=== PATIENT | female | born 1940 | race Caucasian/White ===

== ENCOUNTER → 2019-11-25 | Outpatient (CLI) | payer MEDICARE, OTHER ==
--- NOTE | 2019-11-25 19:36 | RADIOLOGY REPORT (SQ) ---
EXAM DESCRIPTION: MRI LT UPPER JOINT WITHOUT COMPLETED DATE/TIME: 11/25/2019 6:53 pm REASON FOR STUDY: M25.512 PAIN IN LEFT SHOULDER M25.512 PAIN IN LEFT SHOULDER COMPARISON: None. TECHNIQUE: Left shoulder images acquired and stored on PACS. Multiplanar imaging to include fat sens itive sequences such as T1, water sensitive sequences such as FST2/STIR, cartilage sensitive sequence s such as FSPD/gradient-echo sequences. LIMITATIONS: Some of the sequences are markedly limited by motion artifact. Specifically the sagitt al scans. FINDINGS: BONE MARROW AND CORTEX: No worrisome bone lesions or marrow replacement. No occult fractur es. JOINT OR BURSAL EFFUSION: Moderate joint effusion. GLENO-HUMERAL ARTICULATION: Normal articulation. No subluxation. No cystic change. No osteophytes or cartilage loss. ACROMION AND AC JOINT: Predominantly dorsal moderate degenerative overgrowth. Slight lateral down slope of the acromion with spurring. This results in some subacromial narrowing, mild. ROTATOR CUFF AND INTERVAL: Suspect near full-thickness tear along supraspinatus insertion involving t he bursal surface and most of the thickness of the cuff. Articular surface fibers likely remain inta ct. Tendinosis otherwise. LABRUM AND BICEPS LABRAL COMPLEX: Poor assessment. No paralabral cyst formation. Biceps tendon no t well demonstrated. REMAINDER OF LABRUM AND IGHL : Generally intact. PERIARTICULAR AND ADJACENT SOFT TISSUES: No masses or abnormal nodes. OTHER: No other significant finding. IMPRESSION: 1. Cuff disease. Tendinosis and high-grade partial tear along supraspinatus insertion. Limited by bean medellin. TECHNICAL DOCUMENTATION: JOB ID: [id number] 2010 [employer]- All Rights Reserved Reading location - IP/workstation name: [email or web address]
== END ==
LOC: RAD 17:50
PROVIDERS: ATTEND Specialist/Technologist Athletic Trainer
DX: M75.82 Other shoulder lesions, left shoulder (principal); M25.512 Pain in left shoulder